=== PATIENT | female | born 1935 | race Caucasian/White ===

== ENCOUNTER → 2017-03-25 | Outpatient (CLI) | payer MEDICARE, OTHER, MEDICAID ==
[~2017-03-25] MED LIST: ALTACE10 MG PO; ASPIRIN EC81 MG PO; BENADRYL25 MG PO; CRESTOR PO; CRESTOR20 MG PO; LASIX20 MG PO; LINZESS145 MCG PO; LOVENOX 4040 MG/0.4 SUB-Q; MOBIC15 MG PO; NORVASC2.5 MG PO; PLAVIX75 MG PO; PRILOSEC20 M1 PO; PROZAC20 MG PO; PROZAC40 MG PO; REQUIP0.25 MG PO; SYNTHROID75 MCG PO; TRIAMCINOLONE 080 GM TOP; TYLENOL325 MG PO; VITAMIN D35000 UNI1 PO
== END | disposition disaster alternative care site (69) ==
LOC: GAMB 11:33
DX: R07.9 Chest pain, unspecified (principal); J98.8 Other specified respiratory disorders; I95.9 Hypotension, unspecified; M25.519 Pain in unspecified shoulder; M54.6 Pain in thoracic spine; M54.9 Dorsalgia, unspecified; R06.02 Shortness of breath; Z86.79 Personal history of other diseases of the circulatory system